=== PATIENT | male | born 1960 | race Hispanic/Latino ===

== ENCOUNTER 2020-05-05 23:00 | Emergency (ER) | payer SELFPAY ==
[~2020-05-05] VITALS: Ht 167.6 cm; Wt 90.0 kg
[~2020-05-05 23:00] MED LIST: AMOXICILLIN500 MG PO; NO HOME MEDS
[2020-05-05 23:30] VITALS: BP 110/70
== END 2020-05-05 23:30 | disposition home or self-care (01) | DRG 156 ==
LOC: ED 23:00
PROC: 09C3XZZ Extirpation of Matter from Right External Auditory Canal, External Approach (ICD-10-PCS; principal; 2020-05-05)
DX: T16.1XXA Foreign body in right ear, initial encounter (principal); X58.XXXA Exposure to other specified factors, initial encounter

== ENCOUNTER 2020-12-13 08:14 | Emergency (ER) | payer SELFPAY ==
[~2020-12-13] VITALS: Ht 167.6 cm; Wt 75.0 kg
[2020-12-13 12:03] VITALS: BP 121/74
[2020-12-13] MEDS ORDERED: KEFLEX500 MG PO (12:30)
== END 2020-12-13 12:39 | disposition home or self-care (01) | DRG 605 ==
LOC: ED 08:14
PROC: 0HQGXZZ Repair Left Hand Skin, External Approach (ICD-10-PCS; principal; 2020-12-13)
DX: S61.213A Laceration without foreign body of left middle finger without damage to nail, initial encounter (principal); W45.8XXA Other foreign body or object entering through skin, initial encounter

== ENCOUNTER 2020-12-21 08:37 | Emergency (ER) | payer SELFPAY ==
[~2020-12-21] VITALS: Ht 167.6 cm; Wt 70.0 kg
[~2020-12-21 08:37] MED LIST changes: +KEFLEX500 MG PO
[2020-12-21 08:55] VITALS: BP 153/89
== END 2020-12-21 08:55 | disposition home or self-care (01) | DRG 950 ==
LOC: ED 08:37
DX: S61.412D Laceration without foreign body of left hand, subsequent encounter (principal); X58.XXXD Exposure to other specified factors, subsequent encounter